=== PATIENT | male | born 1990 | race Caucasian/White ===

== ENCOUNTER 2017-07-21 19:49 | Emergency (ER) | payer SELFPAY ==
[~2017-07-21] VITALS: Ht 193 cm; Wt 69.9 kg
[2017-07-21 19:52] VITALS: BP 141/79
== END 2017-07-21 20:35 | disposition home or self-care (01) ==
LOC: EME 19:49
DX: S90.32XA Contusion of left foot, initial encounter (principal); W22.09XA Striking against other stationary object, initial encounter
CPT/HCPCS: 99281; 99284